=== PATIENT | female | born 1985 | race Two or more races ===

== ENCOUNTER 2021-10-01 15:29 | Outpatient (REF) | payer MEDICAID, OTHER, SELFPAY ==
--- NOTE | ~2021-10-01 | US_ITS ---
EXAMINATION: US PELVIS CLINICAL INFORMATION: Irregular menstruation. Age 36. LMP 08/21/2021. COMPARISON: None TECHNIQUE: Ultrasound of the pelvis is performed using both transabdominal and transvaginal transducers along with Doppler. Transvaginal imaging is performed due to inadequate visualization transabdominally. FINDINGS: Uterus: The uterus is retroverted and measures 7.6 x 4.3 x 5.2 cm. The double wall endometrial thickness is normal at 11 mm. The uterus is smooth in contour and has normal myometrial echogenicity. No visible fibroid. Adnexa: Both ovaries are visualized. There is normal color flow to the adnexa. There is no ovarian torsion. There is no pelvic ascites or fluid collection. Right ovary measures 3.9 x 1.9 x 2.0 cm. No adnexal mass. Left ovary measures 3.4 x 1.6 x 1.4 cm. There is an incidental fine rim specular echo around a 0.4 cm follicle of doubtful significance. No posterior shadowing. No adnexal mass. US/US pelvic and transvaginal IMPRESSION: -Uterus: No visible fibroid. Endometrial double wall thickness normal at 11 mm. -Ovaries: No adnexal mass or pelvic ascites.
== END 2021-10-01 15:30 | disposition home or self-care (01) ==
LOC: HO.HMGCX 15:29
PROVIDERS: Visit Provider Advanced Practice Midwife
DX: N92.6 Irregular menstruation, unspecified (principal)
CPT/HCPCS: 76830; 76856

== ENCOUNTER → 2022-03-17 13:40 | Outpatient (REF) | payer MEDICAID, OTHER, SELFPAY ==
--- NOTE | 2022-03-17 13:46 | ECG_ITS ---
Hook-up date: 2022-03-17 13:04:00 Duration: 47:51:00 Test Indications: palpitations Medications: [id number] QRS complexes * Ventricular ectopics which represent % of total QRS comp. 2 Supraventricular ectopics which represent <1 % of total QRS comp. * Paced QRS complexs which represent % of total QRS comp. VENTRICULAR ECTOPY * Isolated * Bigeminal Cycles * Couplets * Runs * Beats in Runs * Beats LONGEST at * BPM at :: -- * Beats FASTEST at * BPM at :: -- SUPRAVENTRICULAR ECTOPY 2 Isolated 0 Couplets 0 Runs 0 Beats in Runs * Beats LONGEST at * BPM at :: -- * Beats FASTEST at * BPM at :: -- HEART RATES 49 MIN at 01:32:30 2022-03-18 77 AVG 122 MAX at 15:10:05 2022-03-17 LONGEST RR 1.5440 secs at 01:32:24 2022-03-18 S-T LEVELS Channel 1 - 128 mm at 13:04:00 2022-03-17 - 128 mm at 13:04:00 2022-03-17 Channel 2 - 128 mm at 13:04:00 2022-03-17 - 128 mm at 13:04:00 2022-03-17 Channel 3 - 128 mm at 03:22:31 -- - 128 mm at 03:22:31 Underlying rhythm is sinus; Average ventricular rate 77/min; range 49-122/min; No significant ectopy, tachy or bradyarrhythmias; Dizziness, accelerated heart rate, tiredness, associated with sinus rhythm on holter. Referred By: Marco Nance Overread By: MIGDALIA HANNA
== END ==
LOC: HO.CARD 13:40
PROVIDERS: PCP Internal Medicine; Visit Provider Internal Medicine
DX: R00.2 Palpitations (principal); F41.9 Anxiety disorder, unspecified
CPT/HCPCS: 93225; 93226

== ENCOUNTER 2022-10-01 16:34 | Outpatient (REF) | payer MEDICAID, OTHER, SELFPAY ==
--- NOTE | ~2022-10-01 | XR_ITS ---
EXAMINATION: XR WRIST, RIGHT CLINICAL INFORMATION: Pain and swelling right wrist COMPARISON: None available. TECHNIQUE: PA, lateral, and oblique views of the right wrist. FINDINGS: The bones and soft tissues are normal. No fracture. Alignment is anatomic with normal joint spaces. No erosions or abnormal soft tissue calcifications. XR/XR wrist RT min 3V IMPRESSION: Unremarkable right wrist exam.
== END 2022-10-01 16:35 | disposition home or self-care (01) ==
LOC: HO.XRAY 16:34
PROVIDERS: PCP Emergency Medicine; Visit Provider Emergency Medicine
DX: M25.531 Pain in right wrist (principal); M25.431 Effusion, right wrist
CPT/HCPCS: 73110

== ENCOUNTER 2023-05-04 15:43 | Outpatient (REF) | payer MEDICAID, OTHER, SELFPAY ==
[2023-05-04 17:33] LABS: MANUAL DIFF FLAG NO
[2023-05-04 17:41] LABS: Basophils Percent Auto 0.6 % (0-2); Eosinophils Absolute Auto 0.2 X10*3/uL (0.0-0.4); Eosinophils Percent Auto 2.5 % (0-4); Hematocrit 39.1 % (37.0-47.0); Imm Gran Abs Auto 0.02 X10*3/uL (0.00-0.03); Imm Gran Pct Auto 0.3 % (0.0-0.4); Lymphocytes Absolute Auto 1.8 X10*3/uL (1.2-4.9); Lymphocytes Percent Auto 25.7 % (20-40); Mean Corpuscular HGB Conc 33.2 g/dl (31.0-35.0); Mean Corpuscular Hemoglobin 29.8 pg (27.0-33.0); Mean Corpuscular Volume 89.7 fL (80.0-98.0); Monocytes Absolute Auto 0.5 X10*3/uL (0.1-1.2); Monocytes Percent Auto 7.5 % (2-11); Neutrophils Absolute Auto 4.5 x10*3/uL (2.0-8.3); Neutrophils Percent Auto 63.4 % (45-73); Platelet Count 302 X10*3/uL (160-400); Red Blood Count 4.36 X10*6/uL (4.20-5.50); Red Cell Distribution Width 12.4 % (11.0-16.0); White Blood Count 7.1 X10*3/uL (4.8-10.8)
[2023-05-04 18:28] LABS: Anion Gap 12 (12-20); Blood Urea Nitrogen 17 mg/dL (9-16); Carbon Dioxide 28 mmol/L (22-29); Chloride 102 mmol/L (96-108); Estimated Glomerular Filt Rate 45; Glucose Random 69 mg/dL (60-115); Sodium 138 mmol/L (135-145)
== END 2023-05-04 15:44 | disposition home or self-care (01) ==
LOC: HO.CHCLDS 15:43
PROVIDERS: Visit Provider Internal Medicine
DX: Z00.00 Encounter for general adult medical examination without abnormal findings (principal); K52.9 Noninfective gastroenteritis and colitis, unspecified
CPT/HCPCS: 36415; 80048; 85025

== ENCOUNTER 2023-05-07 11:56 | Outpatient (REF) | payer MEDICAID, OTHER, SELFPAY | END 2023-05-07 11:57 | disposition home or self-care (01) | LOC: HO.CHCLNP 11:56 | PROVIDERS: Visit Provider Internal Medicine | DX: Z11.2 Encounter for screening for other bacterial diseases (principal); K52.9 Noninfective gastroenteritis and colitis, unspecified | CPT/HCPCS: 87338 ==

== ENCOUNTER 2023-06-18 11:12 | Outpatient (REF) | payer MEDICAID, OTHER, SELFPAY ==
[2023-06-18 14:26] LABS: Appearance Urine Clear; Color Urine Yellow; Glucose Urine UA Negative (Negative); Leukocyte Esterase Urine Negative (Negative); Nitrite Urine Negative (Negative); Specific Gravity - Urine <= 1.005 (1.005-1.025); UMIC TRIGGER UACC YES; Urine Blood Moderate (2+) (Negative); Urine Ketones Negative (Negative); Urine Protein Negative (Neg-Trace)
[2023-06-18 14:40] LABS: Bacteria Urine None Seen (None Seen); Hyaline Casts Urine 0-2 /LPF (0-2); RBC Urine 0-2 /HPF (0-2); Squamous Epithelial Cell Urine 0-2 /HPF (0-2); WBC Urine 0-5 /HPF (0-5)
== END 2023-06-18 11:13 | disposition home or self-care (01) ==
LOC: CF 11:12
PROVIDERS: Visit Provider Internal Medicine
DX: N30.01 Acute cystitis with hematuria (principal)
CPT/HCPCS: 81001

== ENCOUNTER 2024-02-03 08:41 | Outpatient (REF) | payer MEDICAID, OTHER, SELFPAY ==
[2024-02-03 14:27] LABS: MANUAL DIFF FLAG NO
[2024-02-03 14:33] LABS: Basophils Absolute Auto 0.1 X10*3/uL (0.0-0.2); Basophils Percent Auto 0.9 % (0-2); Eosinophils Absolute Auto 0.1 X10*3/uL (0.0-0.4); Eosinophils Percent Auto 1.9 % (0-4); Hematocrit 37.9 % (37.0-47.0); Hemoglobin 12.5 g/dl (12.0-16.0); Imm Gran Abs Auto 0.01 X10*3/uL (0.00-0.03); Imm Gran Pct Auto 0.2 % (0.0-0.4); Lymphocytes Absolute Auto 1.8 X10*3/uL (1.2-4.9); Lymphocytes Percent Auto 33.3 % (20-40); Mean Corpuscular Hemoglobin 30.1 pg (27.0-33.0); Mean Corpuscular Volume 91.3 fL (80.0-98.0); Mean Platelet Volume 10.6 fL (9.4-12.3); Monocytes Absolute Auto 0.4 X10*3/uL (0.1-1.2); Monocytes Percent Auto 8.3 % (2-11); Neutrophils Absolute Auto 2.9 x10*3/uL (2.0-8.3); Neutrophils Percent Auto 55.4 % (45-73); Platelet Count 262 X10*3/uL (160-400); Red Blood Count 4.15 X10*6/uL (4.20-5.50); Red Cell Distribution Width 12.7 % (11.0-16.0); White Blood Count 5.3 X10*3/uL (4.8-10.8)
[2024-02-03 14:46] LABS: Anion Gap 10 (12-20); Blood Urea Nitrogen 12 mg/dL (9-16); Calcium 9.2 mg/dL (8.4-10.2); Carbon Dioxide 28 mmol/L (22-29); Chloride 103 mmol/L (96-108); Estimated Glomerular Filt Rate 59; Glucose Random 73 mg/dL (60-115); Potassium 3.7 mmol/L (3.3-5.1); Sodium 137 mmol/L (135-145)
== END 2024-02-03 08:42 | disposition home or self-care (01) ==
LOC: HO.CHCLDS 08:41
PROVIDERS: Visit Provider Internal Medicine
DX: R10.9 Unspecified abdominal pain (principal); R14.0 Abdominal distension (gaseous)
CPT/HCPCS: 36415; 80048; 85025

== ENCOUNTER 2024-10-04 16:09 | Outpatient (REF) | payer MEDICAID, OTHER, SELFPAY ==
--- OUTSIDE RECORDS SUMMARY | 2024-10-04 18:55 | XMS_ITS | Clinical Summary ---
Author Organization [facility] Address [address] [place] [address] Care Team Providers Care Still Tender Name Role Phone Marco Nance Primary Care Provider + [phone] Allergies No known active allergies Medications diclofenac (VOLTAREN) 1% gel Apply to affected area twice a day as needed for pain 09/29/2022 Active Active Problems Problem Noted Date Diagnosed Date Right wrist tendinitis 02/05/2023 Social History Tobacco Use Types Packs/Day Years Used Date Smoking Tobacco: Never Smokeless Tobacco: Never Tobacco Cessation:Counseling Given: Not Answered Comments Unknown Sex and Gender Information Value Date Recorded Sex Assigned at Not on file Legal Sex Female 3:13 PM EDT Gender Identity Not on file Sexual Orientation Not on file Plan of Treatment Health Maintenance Due Date Last Done Comments Cervical Cancer Screening 1984 HIV Screening 1984 HPV and Pap Smear 1984 Hepatitis C Screening 1984 Pap Smear 1984 Varicella Vaccines (1 of 2 - 13+ 2-dose series) 01/05/1997 Hepatitis B Vaccines (1 of 3 - 19+ 3-dose series) 01/05/2003 DTaP,Tdap,and Td Vaccines (1 - Tdap) 01/05/2006 Mammogram 2024 COVID-19 Vaccine (4 - 2023-2 5 season) 2024 07/06/2021, 12/21/2020, 11/30/2020 Alcohol/Substance Use Screening 06/22/2024 Depression Screening and Follow-Up 06/22/2024 Social Drivers of Health Annual Screening 06/22/2024 Influenza Vaccine (Season Ended) 2025 RSV Vaccine (60+ years old and patients) (1 - 1-dose 75+ series) 01/05/2059 Pneumococcal Vaccine: Pediatric (0-5 Years) and At-Risk Patients (6-50 Years) Aged Out No longer eligible based on patient's age to complete this topic Insurance [facility] [place] [id number] HSNO/FREE CARE Care Teams Still Tender Relationship Specialty Start Date End Date Marco Nance [address] [place] [id number] PCP - General Internal Medicine 10/29/22
--- OUTSIDE RECORDS SUMMARY | 2024-10-04 18:55 | XMS_ITS | Encounter Summary ---
Author Organization [employer] Address [address] [place] [address] [address] [place] [address] Care Team Providers Care Manager Agency Name Role Phone Marco Nance MD Primary Care Provider Encounter Details Date Type Department Care Team ([facility] st Contact Info) Description 05/09/2023 Orders Only [facility] [address] [place], [place] [id number] Marco Nance MD [address] [place] [address] H. pylori infection (Primary Dx) Social History Tobacco Use Types Packs/Day Years Used Date Smoking Tobacco: Never Passive Smoke Exposure: Never Smokeless Tobacco: Never Housing Stability Answer Date Recorded What is your housing situation today? I have elvira hyman 04/24/[address] you li ve. Do you have problems with any of the following? None of the above 04/24/2023 Food Insecurity Answer Date Recorded Within the past 12 months, y ou worried that your food would run out before you got money to buy more: Never True 04/24/2023 Within the past 12 months,th e food you bought just didn't last and you didn't have enough money to get more: Never True 08/2022 Transportation Answer Date Recorded In the past 12 months, has l ack of transportation kept you from medical appts, meetings, work or from getting things needed for daily living? No 04/24/2023 Utilities Answer Date Recorded In the past 12 months, has t he electric, gas, oil or water company threatened to shut off services in your home? No 04/24/2023 Comments Unknown Sex and Gender Information Value Date Recorded Sex Assigned at Female 04/21/2022 10:38 AM EDT Legal Sex Female 10:38 AM EDT Gender Identity Female 04/21/2022 10:38 AM EDT Sexual Orientation Straight 04/21/2022 10 :38 AM EDT documented as of this encounter Plan of Treatment Not on file documented as of this encounter Visit Diagnoses Diagnosis H. pylori infection- Primary Helicobacter pylori (H. pylori) documented in this encounter Care Teams Manager Agency Relationship Specialty Start Date End Date Marco Nance MD [address] [place] [id number] PCP - General Internal Medicine 07/22/21 documented as of this encounter
--- OUTSIDE RECORDS SUMMARY | 2024-10-04 18:55 | XMS_ITS | Clinical Summary ---
Author Organization [employer] Address [address] [place] [address] [address] [address] Care Team Providers Care Hand Surgeon Name Role Phone Marco Nance MD Primary Care Provider [phone] Allergies No known active allergies Medications famotidine (Pepcid) 20 MG tabletIndications:Ac grayson gastroenteritis Take 1 tablet (20 mg) by mouth if needed in the morning and at bedtime for heartburn. 60 tablet 1 3 Active Omeprazole 20 MG tablet delayed-releaseIndic ations:H. pylori infection TAKE 1 TABLET BY MOUTH ITM 90 tablet 3 3 Active hydrocortisone (Anusol-HC) 2.5 % rectal cream Apply twice a day for next week. 28 g 3 Active sertraline (Zoloft) 100 MG tabletIndications:An xiety disorder, unspecified TAKE ONE TABLET EVERY MORNING 30 tablet 5 5 Active simethicone (Gas-X Extra Strength) 125 MG capsuleIndications:B loating symptom Take 1 capsule (125 mg) by mouth every 6 (six) hours if needed for flatulence. 28 capsule 5 Active Active Problems Problem Noted Date Diagnosed Date Anxiety 03/21/2021 Encounters Date Type Department Care Team Description 08/18/2024 9:45 AM EST Office Visit [facility] [address] [place], [place] [phone] Marco Nance MD Anxiety (Primary Dx); Bloating symptom 08/18/2024 Travel 08/15/2024 Telephone [facility] [address] [place], [place] [phone] Marco Nance MD CHART PREP 08/04/2024 Patient Outreach [facility] [address] [place] [address] Marco Nance MD Pre-visit Planning (Pre visit planning LVM ) 07/12/2024 Refill [facility] [address] [place] [address] Marco Nance MD Anxiety disorder, unspecified from Last 3 Months Immunizations Name Administration Dates Next Due Influenza injectable quadrivalent preservative f ree 05/04/2023,09/03/2021 Family History Medical History Relation Name Comments Breast cancer Father's Sister Heart disease Mother Hypertension Mother Uterine cancer Mother's Sister Relation Name Status Comments Father's Sister Mother Mother's Sister Social History Tobacco Use Types Packs/Day Years Used Date Smoking Tobacco: Never Passive Smoke Exposure: Never Smokeless Tobacco: Never Tobacco Cessation:Counseling Given: Not Answered Alcohol Use Standard Drinks/Week Comments Never 0 (1 standard drink = 0.6 oz pur e alcohol) Alcohol Answer Date Recorded Q1: How often do you have a drink containing alc ohol? 1 05/06/2024 Q2: How many drinks containi ng alcohol do you have on a typical day when you are drinking? 0 05/06/2024 Q3: How often do you have six or more drinks on one occasion? 1 05/06/2024 Depression Answer Date Recorded Patient Health Questionnaire-9 Score 2 05/06/2024 Patient Health Questionnaire-9 Score 2 05/06/2024 Last PHQ-9: Questionnaire Data Not on file 1 07/06/2023 Housing Stability Answer Date Recorded What is [...] off services in your home? No 04/24/2023 Depression Answer Date Recorded Patient Health Questionnaire-2 Score 0 05/06/2024 Comments No Sex and Gender Information Value Date Recorded Sex Assigned at Female 04/21/2022 10:38 AM EDT Legal Sex Female 10:38 AM EDT Gender Identity Female 04/21/2022 10:38 AM EDT Sexual Orientation Straight 04/21/2022 10 :38 AM EDT Last Filed Vital Signs Vital Sign Reading Time Taken Comments Blood Pressure 100/60 08/18/2024 9:39 AM EST Pulse 64 08/18/2024 9:39 AM EST Temperature 36.6 ??C (97.8 ??F) 08/18/2024 9:39 AM ES T Respiratory Rate 20 08/18/2024 9:39 AM EST Oxygen Saturation 98% 08/18/2024 9:39 AM EST Inhaled Oxygen Concentration - - Weight 66.2 kg (146 lb) 08/18/2024 9:39 AM EST Height 169 cm (5' 6.54 ) 08/18/2024 9:39 AM EST Body Mass Index 23.19 08/18/2024 9:39 AM EST Plan of Treatment Health Maintenance Due Date Last Done Comments Family Planning (PISQ) 01/05/1999 Hepatitis B Vaccines (1 of 3 - 19+ 3-dose series) 01/05/2003 Dental Oral Exam 11/22/2023 05/22/2023 Dental Prophylaxis 12/05/2023 06/04/2023 Mammogram 2024 COVID-19 Vaccine ( - 2023-2 5 season) 2024 SDOH Screening 04/24/2024 04/24/2023 Dental X-Ray: Bitewings 05/23/2024 05/22/2023 Pap Smear 09/03/2024 09/03/2021 Influenza Vaccine (#1) 2024 3, 09/03/2021 Postponed from 02/21/2024 (Patient Refused) DTaP/Tdap/Td Vaccines (1 - Tdap) 05/06/2025 Postponed from 01/05 (Patient Refused) Depression Screening 05/06/2025 05/06/2024, 05/06/2024 Alcohol/Substance Use Screening 08/18/2025 08/18/2024 Tobacco Screening 08/18/2025 08/18/2024 Dental X-Ray: Full Mouth 05/23/2026 05/22/2023 Cervical Cancer Screening 09/03/2026 HPV/Cotest 09/03/2026 09/03/2021 Zoster Vaccines (1 of 2) 01/05/2034 RSV Patients and Patients Aged 60 years or older (1 - 1-dose 75+ series) 01/05/2059 HIV Screening Completed 05/09/2022 Hepatitis C Screening Completed 05/09/2022 , 07/02/2021 HIB Vaccines Aged Out No longer eligi ble based on patient's age to complete this topic HPV Vaccines Aged Out No longer eligi ble based on patient's age to complete this topic Hepatitis A Vaccines Aged Out No long er eligible based on patient's age to complete this topic IPV Vaccines Aged Out No longer eligi ble based on patient's age to complete this topic Meningococcal Vaccine Aged Out No violetta santos eligible based on patient's age to complete this topic Pneumococcal Vaccine: Pediatrics (0 to 5 Years) and At-Risk Patients (6 to 49) Years) Aged Out No longer eligible b ased on patient's age to complete this topic RSV under 20 months Aged Out No longe r eligible based on patient's age to complete this topic Rotavirus Vaccines Aged Out No longer eligible based on patient's age to complete this topic Procedures Procedure Name Priority Date/Time Associated Diagnosis Comments PROPHYLAXIS - ADULT Routine 06/04/2023 2 :00 PM EST INTRAORAL - COMPLETE SERIES OF RADIOGRAPHIC IMAGES Routine 05/22/2023 2:00 PM EST COMPREHENSIVE ORAL EVALUATION - NEW OR ESTABLISHED PATIENT Routine 05/22/2023 2:00 PM EST ZZZ HISTORICAL HEPATITIS C AB W/REFL TO HCV RNA, QN, PCR Routine 05/09/2022 10:10 AM EST HIV 1/2 ANTIGEN/ANTIBODY, FOURTH GENERATION W/RFL Routine 05/09/2022 10:10 AM EST THINPREP IMAGING PAP AND HPV MRNA E6/E7 WITH REFLEX TO HPV 16,18/45 Routine 09/03/2021 3:07 PM EDT from Last 3 Months or Most Recently Relevant to Health Maintenance Results * HEPATITIS C AB W/REFL TO HCV RNA, QN, PCR (05/09/2022 10:10 AM EST) HEPATITIS C ANTIBODY NON-REACTI VE NON-REACT ZAIRE CONVERTED LEGACY LABS INDEX 0.10 <1.00 CONVERTED LEGACY LABS Comment: ?? HCV antibody was non-reactive. There is no laboratory ?? evidence of HCV infection. ?? In most cases, no further action is required. However, if recent HCV exposure is suspected, a test for HCV RNA (test code 50680) is suggested. ?? For additional information please refer to http://ARTtwo50.[employer]/faq/NDV06h4 (This link is being provided for informational/ educational purposes only.) ?? 05/09/2022 10:1 0 AM EST Moon Baig BEEKEEPER FARMER HISTORICAL/NON ORDERABLE LABS Final Result CONVERTED LEGACY LABS * HIV 1/2 ANTIGEN/ANTIBODY,FOURTH GENERATION W/RFL (05/09/2022 10:10 AM EST) HIV-1/2 ANTIGEN AND ANTIBODIES, 4TH GENERATION W/ REFLEX NON-REACT ZAIRE NON-REACT ZAIRE CONVERTED LEGACY LABS Comment: HIV-1 antigen and HIV-1/HIV-2 antibodies were not detected. There is no laboratory evidence of HIV infection. ?? PLEASE NOTE: This information has been disclosed to you from records whose confidentiality may be protected by state law. ??If your state requires such protection, then the state law prohibits you from making any further disclosure of the information without the specific written consent of the person to whom it pertains, or as otherwise permitted by law. A general authorization for the release of medical or other information is NOT sufficient for this purpose. ? For additional information please refer to http://education.[employer]/faq/XCO205 (This link is being provided for informational/ educational purposes only.) ? The performance of this assay has not been clinically validated in patients less than 2 years old. ?? 05/09/2022 10:1 0 AM EST us Moon Baig [employer]EEKEE[employer] LAB BLOOD ORDERABLES Final Res ult CONVERTED LEGACY LABS * THINPREP TIS PAP AND HPV mRNA E6/E7 WITH REFLEX TO HPV 16,18/45 (09/03/2021 3:07 PM EDT) Clinical Information: None given [email or web address] COMMENT SEE COMMENT [facility] Comment: EXPLANATORY NOTE: ? The Pap is a screening test for cervical cancer. It is ?? not a diagnostic test and is subject to false negative ?? and false positive results. It is most reliable when a ?? satisfactory sample, regularly obtained, is submitted ?? with relevant clinical findings and history, and when ?? the Pap result is evaluated along with historic and ?? current clinical information. ?? COMMENT: This Pap test has been evaluated with computer assisted technology. [employer] [facility] Cafeteria Helper: SEE COMMENT [facility] Comment: CMG, CT(ASCP) CT screening location: [address] ??[id number] HPV nRNA E6/E7 Not Detected Not Detected [employer] [facility] Comment: Methodology: Demand Generation Manager-Mediated Amplification This assay detects E6/E7 viral messenger RNA (mRNA) from 14 high-risk HPV types (16,18,31,33,35,39,45,51,52,56,58,59,66,68). ? The analytical performance characteristics of this assay have been determined by [employer]. The modifications have not been cleared or approved by the FDA. This assay has been validated pursuant to the CLIA regulations and is used for clinical purposes. ?? For additional information, please refer to http://education.[employer]/faq/QST332y4 (This link if provided for information/ educational purposes only.) Interpretation/Re sult: Negative for intraepithelial lesion or malignancy. [email or web address] LMP: NONE [facility]IVEN [facility] Prev. BX: NONE GIVEN [facility] Prev. PAP: NONE GIVEN [facility] SYSTEM SOURCE: None given [facility] Statement Of Adequacy: SEE COMMENT [facility] Comment: Satisfactory for evaluation. Endocervical/transformation zone component present. Age and/or menstrual status not provided 09/03/2021 3:07 PM EDT Mercedes Garland CNM LAB PATHOLOGY ORDERABLES Final Result [facility] [address] from Last 3 Months or Most Recently Relevant to Health Maintenance Insurance LIMITED HSN FULL DENTAL-[facility] MEDICAID LIMITED ADULT DENTAL - HSN FULL (MEDICAID) DENTAL - HSN PARTIAL (MEDICAID) Care Teams Hand Surgeon Relationship Specialty Start Date End Date Marco Nance MD [address] [place] [id number] PCP - General Internal Medicine 07/22/21
--- OUTSIDE RECORDS SUMMARY | 2024-10-04 18:55 | XMS_ITS | Referral Summary ---
Author Organization [facility] Address [address] [place] [address] Care Team Providers Care Livestock Commission Agent Name Role Phone WilmergurmeetMarco urena Primary Care Provider + [phone] Allergies No known active allergies Medications diclofenac [...] Orientation Not on file Plan of Treatment Not on file Insurance [facility] HS/FREE CARE Care Teams Livestock Commission Agent Relationship Specialty Start Date End Date Marco Nance [address] [place] [address] PCP - General Internal Medicine 10/29/22
== END 2024-10-04 16:10 | disposition home or self-care (01) ==
LOC: HO.MAMMO 16:09
PROVIDERS: PCP Internal Medicine; Visit Provider Internal Medicine
DX: Z12.31 Encounter for screening mammogram for malignant neoplasm of breast (principal)
CPT/HCPCS: 77063; 77067

== ENCOUNTER → 2024-10-04 16:15 | Outpatient (BNV) | payer SELFPAY | PROVIDERS: PCP Internal Medicine; Visit Provider Internal Medicine | DX: Z12.31 Encounter for screening mammogram for malignant neoplasm of breast (principal) | CPT/HCPCS: 77063; 77067 ==

== ENCOUNTER 2025-02-22 13:06 | Outpatient (REF) | payer SELFPAY ==
--- OUTSIDE RECORDS SUMMARY | 2025-02-22 09:00 | XMS_ITS | Encounter Summary ---
Author Organization [employer] Address [address] [place] [address] Care Team Providers Care Wet Plant Operator Name Role Phone Marco Nance MD Primary Care Provider [phone] Reason for Referral * Imaging (Routine) - Authorized Specialty Diagnoses / Procedures Referred By Contac t Referred To Contact Radiology Diagnoses Pelvic pain Procedures US Pelvis Transvaginal Bailey Robles MD [address] [place] [id number] Phone: tel: fax: [address] Phone: tel: fax: Referral ID Status Reason Start Date Expiration Date V isits Requested Visits Authorized [id number] Authorized 02/22/2025 02/22/2026 1 1 * Imaging (Routine) - Authorized Specialty Diagnoses / Procedures Referred By Contac t Referred To Contact Radiology Diagnoses Pelvic pain Procedures Us Pelvis complete Bailey Robles MD [address] [place] [address] Phone: tel: fax: [address] Phone: tel: fax: Referral ID Status Reason Start Date Expiration Date V isits Requested Visits Authorized [id number] Authorized 02/22/2025 02/22/2026 1 1 Reason for Visit * Reason Comments Pelvic Pain Encounter Details Date Type Department Care Team (Late st Contact Info) Description 02/22/2025 9:00 AM EDT Office Visit [facility] [address] [place] [address] Bailey Robles MD [address] [place] [address] Pelvic pain (Primary Dx) Social History Tobacco Use Types Packs/Day Years Used Date Smoking Tobacco: Never Passive Smoke Exposure: Never Smokeless Tobacco: Never Alcohol Use Standard Drinks/Week Comments Never 0 [...] AM EDT documented as of this encounter Last Filed Vital Signs Vital Sign Reading Time Taken Comments Blood Pressure 112/69 02/22/2025 9:16 AM EDT Pulse 74 02/22/2025 9:16 AM EDT Temperature 36.2 C (97.2 F) 02/22/2025 9:16 AM EDT Respiratory Rate 20 02/22/2025 9:16 AM EDT Oxygen Saturation 98% 02/22/2025 9:16 AM EDT Inhaled Oxygen Concentration - - Weight 67.4 kg (148 lb 9.6 oz) 02/22/2025 9:16 A M EDT Height 167 cm (5' 5.75 ) 02/22/2025 9:16 AM EDT Body Mass Index 24.17 02/22/2025 9:16 AM EDT documented in this encounter Plan of Treatment Scheduled Orders Name Type Priority Associated Diagnoses Orde r Schedule TSH W/Reflex to FT4 Lab Routine Pelvic pain Expected: 02/22/2025 (Approximate), Expires: 02/22/2026 Us Pelvis complete Imaging Routine Pelvic pain Expected: 02/22/2025, Expires: 02/22/2026 US Pelvis Transvaginal Imaging Routine Pelvic pain Expected: 02/22/2025, Expires: 02/22/2026 Bacterial Vaginosis Microbiology Routine Pelvic pain Ordered: 02/22/2025 Chlamydia/N. Gonorrhoeae RNA, TMA, Urogenitial Microbiology Routine Pelvic pain Ordered: 02/22/2025 CBC auto differential Lab Routine Pelvic pain Expected: 02/22/2025 (Approximate), Expires: 02/22/2026 hCG, Total, Quantitative Lab Routine Pelvic pain Expected: 02/22/2025 (Approximate), Expires: 02/22/2026 documented as of this encounter Visit Diagnoses Diagnosis Pelvic pain- Primary documented in this encounter Additional Health Concerns Assessment Noted Time PHQ-9 Depression Total Score: 2 05/06/20 24 2:34 PM EST documented as of this encounter Care Teams Wet Plant Operator Relationship Specialty Start Date End Date Marco Nance MD [address] [place] [phone] PCP - General Internal Medicine 07/22/21 documented as of this encounter
--- OUTSIDE RECORDS SUMMARY | 2025-02-22 15:27 | XMS_ITS | Clinical Summary ---
Author Organization [employer] Address [address] [place] [address] [address] [place] [address] Care Team Providers Care Credit Risk Review Officer Name Role Phone Marco Nance MD Primary Care Provider Allergies No known active allergies Medications famotidine (Pepcid) 20 MG tabletIndications:[place] gastroenteritis Take 1 tablet (20 mg) by [...] needed for flatulence. 28 capsule 5 Active folic acid (Folvite) 400 MCG tablet Take 1 tablet by mouth at bed time. 1 Active Active Problems Problem Noted Date Diagnosed Date Right wrist tendinitis 02/05/2023 Anxiety 03/21/2021 COVID-19 08/29/2020 Encounters Date Type Department Care Team Description 02/22/2025 9:00 AM EDT Office Visit [facility] [address] [place] [address] Bailey Robles MD Pelvic pain (Primary Dx) 02/22/2025 Travel 02/21/2025 Telephone [facility] [address] [place] [address] Marco Nance MD Nurse Triage 01/03/2025 Telephone [facility] [address] [place] [address] Marco Nance MD recall appt from Last 3 Months Immunizations Immunization Administration Dates Next Due Influenza injectable quadrivalent [...] Mass Index 24.17 02/22/2025 9:16 AM EDT Plan of Treatment Health Maintenance Due Date Last Done Comments Disability Screening 1985 Family Planning (PISQ) 01/05/1999 HPV Vaccines (1 - 3-dose series) 01/05/1999 Hepatitis B Vaccines (1 of 3 - 19+ 3-dose series) 01/05/2003 Dental Oral Exam 11/22/2023 05/22/2023 Dental Prophylaxis 12/05/2023 06/04/2023 SDOH Screening 04/24/2024 04/24/2023 Dental X-Ray: Bitewings 05/23/2024 05/22/2023 COVID-19 Vaccine (1 - 2023-2 5 season) 2025 Influenza Vaccine (#1) 2025 , 09/03/2021 DTaP/Tdap/Td Vaccines (1 - Tdap) 05/06/2025 Postponed from 01/05 (Patient Refused) Depression Screening 05/06/2025 05/06/2024, 05/06/2024 Alcohol/Substance Use Screening 08/18/2025 08/18/2024 Tobacco Screening 02/22/2026 02/22/2025 Dental X-Ray: Full Mouth 05/23/2026 05/22/2023 Cervical Cancer Screening 09/03/2026 HPV/Cotest 09/03/2026 09/03/2021 Pap Smear 09/03/2026 09/03/2021 Mammogram 10/04/2026 10/04/2024 Zoster Vaccines (1 of 2) 01/05/2034 RSV [...] patient's age to complete this topic Meningococcal B Vaccine Aged Out No l onger eligible based on patient's age to complete this topic Meningococcal Vaccine Aged Out No violetta santos eligible based on patient's age to complete this topic Pneumococcal Vaccine: Pediatrics (0 to 5 Years) and At-Risk Patients (6 to 49) Years Aged Out No longer eligible b ased on patient's age to complete this topic RSV under 20 months Aged Out No longe r eligible based on patient's age to complete this topic Rotavirus Vaccines Aged Out No longer eligible based on patient's age to complete this topic Procedures Procedure Name Priority Date/Time Associated Diagnosis Comments BI MAMMOGRAM SCREENING TOMOSYNTHESIS BILATERAL Routine 10/04/2024 4:13 PM EDT Screening mammogram for breast cancer PROPHYLAXIS - ADULT Routine 06/04/2023 2 :00 [...] Recently Relevant to Health Maintenance Results * BI Mammogram Screening Tomosynthesis Bilateral (10/04/2024 4:13 PM EDT) Anatomical Region Laterality Modality Breast Bilateral Mammography 10/04/2024 4:13 PM EDT Narrative 10/15/2024 11:24 AM EDT [facility] [address] [place] [address] Mammography Report Signed Patient: Kelle Howard MR#: [id number] : 1985 Acct:[id number] Age/Sex: 39 / F ADM Date: 10/04/24 Loc: HO.MAMMO Attending Dr: Marco Nance MD Ordering Physician: Marco Nance MD Results: 1 Negative Date of Service: 10/04/24 Follow Up: 1 Year From [facility] Mammogram Procedure(s): MM tomosynthesis screening BI Accession Number(s): [id number] cc: Marco Nance MD EXAMINATION: MM SCREENING DIGITAL BREAST TOMOSYNTHESIS, BILATERAL CLINICAL INFORMATION: Screening. Asymptomatic. COMPARISON: Mammography: Baseline. TECHNIQUE: Digital breast mammography with tomosynthesis is performed in both the craniocaudal and mediolateral oblique views along with computer-aided detection (CAD). FINDINGS: The breasts are heterogeneously dense, which may obscure small masses (ACR BI-RADS breast composition Category c). There are no significant masses, abnormal calcifications, or other abnormalities. MM/MM tomosynthesis screening BI IMPRESSION: No mammographic evidence of malignancy. ASSESSMENT: BI-RADS BI-RADS 1 - Negative RECOMMENDATION: Routine annual mammography screening. 1 year F/U This examination should not preclude the clinical evaluation of a suspicious palpable abnormality. This patient's information was entered into a reminder system with a target due date for their next mammogram. Electronically signed by: Lynne Herbert DO 10/15/2024 11:21 AM EDT Dictated By: Lynne Herbert DO Signed By: <Electronically signed by Lynne Herbert DO in OV> 10/15/24 1121 DD/ 1613 TD/TT: 10/04/24 1628 Process Improvement Consultant: Procedure Note Donotuseinterpreter, Image - 10/15/2024 [facility] [address] [place], [place] [address] Mammography Report Signed Patient: Kelle Howard MR#: [id number] : 1985Acct:[id number] Age/Sex: 39 / FADM Date: 10/04/24 Loc: HO.MAMMO Attending Dr: Marco Nance MD Ordering Physician: Marco Nance MDResults: 1 Negative Date of Service: 10/04/24Follow Up: 1 Year From Orig inal Mammogram Procedure(s): MM tomosynthesis screening BI Accession Number(s): [id number] cc: Marco Nance MD EXAMINATION: MM SCREENING DIGITAL BREAST TOMOSYNTHESIS, BILATERAL CLINICAL INFORMATION: Screening. Asymptomatic. COMPARISON: Mammography: Baseline. TECHNIQUE: Digital breast mammography with tomosynthesis is performed in both the craniocaudal and mediolateral oblique views along with computer-aided detection (CAD). FINDINGS: The breasts are heterogeneously dense, which may obscure small masses (ACR BI-RADS breast composition Category c). There are no significant masses, abnormal calcifications, or other abnormalities. MM/MM tomosynthesis screening BI IMPRESSION: No mammographic evidence of malignancy. ASSESSMENT: BI-RADS BI-RADS 1 - Negative RECOMMENDATION: Routine annual mammography screening. 1 year F/U This examination should not preclude the clinical evaluation of a suspicious palpable abnormality. This patient's information was entered into a reminder system with a target due date for their next mammogram. Electronically signed by: Lynne Herbert DO 10/15/2024 11:21 AM EDT Dictated By: Lynne Herbert DO Signed By: <Electronically signed by Lynne Herbert DO in OV> 10/15/24 1121 DD/ 1613 TD/TT: 10/04/24 1628 Process Improvement Consultant: us Marco Nance MD IMG BI PROCEDURES Edited Re sult - Final * HEPATITIS C AB W/REFL TO HCV RNA, QN, PCR (05/09/2022 10:10 AM EST) HEPATITIS C ANTIBODY NON-REACTI VE NON-REACT ZAIRE CONVERTED LEGACY LABS INDEX 0.10 <1.00 CONVERTED LEGACY LABS Comment: HCV antibody was non-reactive. There is no laboratory evidence of HCV infection. In most cases, no further action is required. However, if recent HCV exposure is suspected, a test for HCV RNA (test code 21307) is suggested. For additional information please refer to http://education.[employer]faq/XTL90x5 (This link is being provided for informational/ educational purposes only.) 05/09/2022 10:1 0 AM EST Moon JARA HISTORICAL/NON ORDERABLE LABS Final Result CONVERTED LEGACY LABS * HIV 1/2 ANTIGEN/ANTIBODY,FOURTH GENERATION W/RFL (05/09/2022 10:10 AM EST) HIV-1/2 ANTIGEN AND ANTIBODIES, 4TH GENERATION W/ REFLEX NON-REACT ZAIRE NON-REACT ZAIRE CONVERTED LEGACY LABS Comment: HIV-1 antigen and HIV-1/HIV-2 antibodies were not detected. There is no laboratory evidence of HIV infection. PLEASE NOTE: This information has been disclosed to you from records whose confidentiality may be protected by state law. If your state requires such protection, then the state law prohibits you from making any further disclosure of the information without the specific written consent of the person to whom it pertains, or as otherwise permitted by law. A general authorization for the release of medical or other information is NOT sufficient for this purpose. For additional information please refer to http://education.[employer]/faq/UHV009 (This link is being provided for informational/ educational purposes only.) The performance of this assay has not been clinically validated in patients less than 2 years old. 05/09/2022 10:1 0 AM EST us Moon Baig SUPERVISOR ALUMINUM FABRICATION LAB BLOOD ORDERABLES Final Res ult CONVERTED LEGACY LABS * THINPREP TIS PAP AND HPV mRNA E6/E7 WITH REFLEX TO HPV 16,18/45 (09/03/2021 3:07 PM EDT) Clinical Information: None given [facility] COMMENT SEE COMMENT [facility] Comment: EXPLANATORY NOTE: The Pap is a screening test for cervical cancer. It is not a diagnostic test and is subject to false negative and false positive results. It is most reliable when a satisfactory sample, regularly obtained, is submitted with relevant clinical findings and history, and when the Pap result is evaluated along with historic and current clinical information. COMMENT: This Pap test has been evaluated with computer assisted technology. [facility] Window Shade Cutter And Mounter: SEE COMMENT [facility] Comment: CMG, CT(ASCP) CT screening location: [place] [address] HPV nRNA E6/E7 Not Detected Not Detected [facility] Comment: Methodology: Manager Local-Mediated Amplification This assay detects E6/E7 viral messenger RNA (mRNA) from 14 high-risk HPV types (16,18,31,33,35,39,45,51,52,56,58,59,66,68). The analytical performance characteristics of this assay have been determined by [employer]. The modifications have not been cleared or approved by the FDA. This assay has been validated pursuant to the CLIA regulations and is used for clinical purposes. For additional information, please refer to http://education.[employer]/faq/JVG011h6 (This link if provided for information/ educational purposes only.) Interpretation/Re sult: Negative for intraepithelial lesion or malignancy. [facility] LMP: NONE GIVEN [facility] Prev. BX: NONE GIVEN [facility] Prev. PAP: NONE GIVEN [facility] SOURCE: None given [facility] Statement Of Adequacy: SEE COMMENT [facility] Comment: Satisfactory for evaluation. Endocervical/transformation zone component present. Age and/or menstrual status not provided 09/03/2021 3:07 PM EDT us Mercedes Garland CNM LAB PATHOLOGY ORDERABLES Final Result [facility] [address] from Last 3 Months or Most Recently Relevant to Health Maintenance Insurance [employer] N [facility] LIMITED ADULT DENTAL - HSN FULL (MEDICAID) DENTAL - HSN PARTIAL (MEDICAID) Care Teams Credit Risk Review Officer Relationship Specialty Start Date End Date Marco Nance MD [address] [place], [place] [phone] PCP - General Internal Medicine 07/22/21
--- OUTSIDE RECORDS SUMMARY | 2025-02-22 15:27 | XMS_ITS | Encounter Summary ---
Author Organization [employer] Address [address] [place] [address] 7 [place] [address] Care Team Providers Care Human Resources Assistant Name Role Phone Marco Nacne MD Primary Care Provider Encounter Details Date Type Department Care Team ([facility] st Contact Info) Description 05/09/2023 Orders Only [facility] [address] [place], [place] [phone] Marco Nance MD [address] [place] [address] H. pylori infection (Primary Dx) Social History [...] pylori) documented in this encounter Care Teams Human Resources Assistant Relationship Specialty Start Date End Date Marco Nance MD [address] [place] [id number] PCP - General Internal Medicine 07/22/21 documented as of this encounter
--- OUTSIDE RECORDS SUMMARY | 2025-02-22 15:27 | XMS_ITS | Encounter Summary ---
Author Organization [employer] Address [address] [place] [address] Care Team Providers Care Ice Cutter Name Role Phone Marco Nance MD Primary Care Provider Reason for Visit * Reason Onset Date Comments Nurse Triage 02/21/2025 Encounter Details Date Type Department Care Team ([facility] st Contact Info) Description 02/21/2025 Telephone [facility] [address] [place], [place] [phone] Marco Nance MD [address] [place] [address] Nurse Triage Social History Tobacco Use Types Packs/Day Years [...] the past 12 months, has t he [employer], gas, oil or water company threatened to [...] AM EDT documented as of this encounter Miscellaneous Notes * Telephone Encounter - Richa Galindo RN - 02/21/2025 10:55 AM EDT Call to Kelle Howard for triage below with BIG multi disciplined language analyst line with Pashto measuring clerk ID # [id number]. Reports has normal menses of approx 5 days. Per pt had heavier than normal bleeding and lasted approx 10 days. Not currently having any bleeding . LMP was on 02/09/25. Pain is pelvic area. Has persisted since menses. Continues to feel like cramping. No urinary pain or burning. Has foul odor discharge. Pt advised of disposition, no appts in [place] agrees to sick onsite tomorrow with team provider. Protocol Used: Pelvic Pain - Female (Adult) Protocol-Based Disposition: See in Office or Video Visit Today Future Appointments Date Time Provider Department Center 02/22/2025 9:00 AM Bailey Robles MD [facility] Insurance verified as active per Real Time Eligibility in [facility]. Positive Triage Question: * Unusual vaginal discharge (e.g., bad smelling, yellow, green, or foamy-white) * All higher-acuity triage questions were negative Care Advice Discussed: * Reassurance and Education - Mild to Moderate Pain Lasting Less Than 2 Hours * Rest * Reasons To Call Back - Severe pain lasts over 1 hour - Constant pain lasts over 2 hours - You become worse * Telephone Encounter - Dillon Banda - 02/21/2025 9:52 AM EDT Tc from pt reporting that she was on her menstrual cycle for 10 days straight and would have abdominal pain. Pt is no longer on menstrual cycle but still has abdominal pain. Contact [phone] (Pashto) documented in this encounter Plan of Treatment Not on file documented as of this encounter Visit Diagnoses Not on filedocumented in this encounter Additional Health Concerns Assessment Noted Time PHQ-9 Depression Total Score: 2 05/06/20 24 2:34 PM EST documented as of this encounter Care Teams Ice Cutter Relationship Specialty Start Date End Date Marco Nance MD [address] [place] [id number] PCP - General Internal Medicine 07/22/21 documented as of this encounter
--- OUTSIDE RECORDS SUMMARY | 2025-02-22 15:27 | XMS_ITS | Clinical Summary ---
Author Organization [facility] Address [address] [place] [address] Care Team Providers Care Corrective Therapy Aide Name Role Phone Marco Nance Primary Care Provider + [phone] Allergies No known active allergies Medications diclofenac [...] Vaccines (1 - Tdap) 01/05/2006 Mammogram 2024 Alcohol/Substance Use Screening 06/22/2024 Depression Screening and Follow-Up 06/22/2024 Social Drivers of Health Annual Screening 06/22/2024 COVID-19 Vaccine (4 - 2024-2 6 season) 2025 07/06/2021, 12/21/2020, 11/30/2020 Influenza Vaccine (#1) 2025 RSV Vaccine (60+ years old and patients) (1 - 1-dose 75+ series) 01/05/2059 Pneumococcal Vaccine: Pediatric (0-5 Years) and At-Risk Patients (6-50 Years) Aged Out No longer eligible based on patient's age to complete this topic Insurance [facility] [address] HSNO/FREE CARE Care Teams Corrective Therapy Aide Relationship Specialty Start Date End Date Marco Nance [address] [place] [id number] PCP - General Internal Medicine 10/29/22
--- OUTSIDE RECORDS SUMMARY | 2025-02-22 15:27 | XMS_ITS | Encounter Summary ---
Author Organization [employer] Address [address] [facility] 7 [place] [address] Care Team Providers Care Operations Controller Name Role Phone Marco Nance MD Primary Care Provider [phone] Encounter Details Date Type Department Care Team (Latest Contact Info) Description 02/22/2025 Travel Social History Tobacco Use Types Packs/Day Years [...] documented as of this encounter Care Teams Operations Controller Relationship Specialty Start Date End Date Marco Nance MD [address] [place] [phone] PCP - General Internal Medicine 07/22/21 documented as of this encounter
[2025-02-22 16:39] LABS: Bacterial Vaginosis PCR NEGATIVE (Negative); Candida Group PCR NOT DETECTED (Not Detect); Candida glab krusei PCR NOT DETECTED (Not Detect); Trichomonas vaginalis PCR NOT DETECTED (Not Detect)
[2025-02-22 17:01] LABS: CT PCR NOT DETECTED (Not Detect.); NG PCR NOT DETECTED (Not Detect.)
== END 2025-02-22 13:07 | disposition home or self-care (01) ==
LOC: HO.CHCLNP 13:06
PROVIDERS: Visit Provider Family Medicine
DX: R10.2 Pelvic and perineal pain (principal)
CPT/HCPCS: 81515; 87491; 87591

== ENCOUNTER 2025-03-06 14:32 | Outpatient (REF) | payer MEDICAID, OTHER, SELFPAY ==
--- OUTSIDE RECORDS SUMMARY | 2025-03-06 13:40 | XMS_ITS | Encounter Summary ---
Author Organization [employer] Address [address] [facility] 7t [place] [address] Care Team Providers Care Boiler Operator Name Role Phone Marco Nance MD Primary Care Provider [phone]- [phone] Reason for Visit * Reason Comments Abdominal Pain Encounter Details Date Type Department Care Team (Late st Contact Info) Description 03/06/2025 1:40 PM EDT Office Visit [facility] [address] [place] [address] [phone] Stormy Ruth ANP [address] [place] [address] Lower abdominal pain (Primary Dx); Irregular menses; Vaginal discharge Social History Tobacco Use Types Packs/Day Years [...] the past 12 months, has t he [place], gas, oil or water company threatened to [...] Sign Reading Time Taken Comments Blood Pressure 113/73 03/06/2025 1:56 PM EDT Pulse 71 03/06/2025 1:56 PM EDT Temperature 36.7 C (98 F) 03/06/2025 1:56 PM EDT Respiratory Rate 18 03/06/2025 1:56 PM EDT Oxygen Saturation 100% 03/06/2025 1:56 PM EDT Inhaled Oxygen Concentration - - Weight 65.2 kg (143 lb 12.8 oz) 03/06/2025 1:56 PM EDT Height - - Body Mass Index 23.39 02/22/2025 9:16 AM EDT documented in this encounter Patient Instructions * Patient Instructions* DOMENIC Sheldon - 03/06/2025 1:40 PM EDT documented in this encounter Progress Notes * DOMENIC Sheldon - 03/06/2025 1:40 PM EDT Subjective Patient ID: Kelle Howard is a 40 y.o. female who presents for abdominal pain. HPI Here today for lower abd pain. Also seen at [facility] for pelvic pain 02/22/25 Per triage Reports has normal menses of approx 5 days. Per pt had heavier than normal bleeding andlasted approx 10 days. Not currently having any bleeding . LMP was on 02/09/25. Pain is pelvic area.Has persisted since menses. Continues to feel like cramping. No urinary pain or burning. Has foul odor discharge. Omeprazole on med list as well as simethicone, only fill hx is for sertraline Recent testing negative as below (trich, NG/CT, BV, yeast) [place] interpreters utilized for [place] interpretation via phone, # [phone] Here today for eval of abd pain, reports same as above, lower pelvic. Started w/ abd pain 2d ago cramping and vaginal discharge that is malodorous and a little pink Had a long menstrual cycle in January, LMP 02/09/25 No dysuria, no fever/chills, nausea, vomiting No dyspareunia Has US scheduled for next Thursday as ordered by Dr. Robles [facility] Vasectomy 10 years ago Non-smoker Patient Active Problem List Diagnosis Anxiety Right wrist tendinitis Review of Systems Constitutional: Negative for chills and fever. HENT: Negative for sore throat. Respiratory: Negative for cough and shortness of breath. Cardiovascular: Negative for chest pain. Gastrointestinal: Negative for constipation and diarrhea. Endocrine: Negative for polydipsia, polyphagia and polyuria. Genitourinary: Negative for dysuria. Objective BP 113/73 (BP Location: Right arm, Patient Position: Sitting, BP Cuff Size: Adult) Pulse 71 Temp 98 ??F (36.7 ??C) (Oral) Resp 18 Wt 143 lb 12.8 oz (65.2 kg) SpO2 100% BMI 23.39kg/m?? Physical Exam Vitals reviewed. Constitutional: General: She is not in acute distress. Appearance: Normal appearance. She is not ill-appearing. HENT: Head: Normocephalic and atraumatic. Eyes: General: No scleral icterus. Extraocular Movements: Extraocular movements intact. Pupils: Pupils are equal, round, and reactive to light. Cardiovascular: Rate and Rhythm: Normal rate. Pulmonary: Effort: Pulmonary effort is normal. No accessory muscle usage or respiratory distress. Skin: General: Skin is warm and dry. Coloration: Skin is not pale. Neurological: Mental Status: She is alert and oriented to person, place, and time. Cranial Nerves: No cranial nerve deficit. Gait: Gait normal. Psychiatric: Mood and Affect: Mood normal. Behavior: Behavior normal. Assessment/Plan Diagnoses and all orders for this visit: Lower abdominal pain Pt appears well, with mild lower pelvic pain similar w/ cramping and malodorous pinkish vaginal discharge x2d. UA w trace blo. No urinary sx. Check BV panel today. Recent other testing wnl, no new partners. Had irregular menses last mo. US scheduled for next week. Advised to take OTC ibuprofen as needed for pain, get labs as ordered, call clinic for any worsening sx. - POCT urinalysis dipstick manually resulted - POCT , urine manually resulted Office Visit on 03/06/2025 Component Date Value Ref Range Status Color, UA 03/06/2025 Yellow Final Clarity, UA 03/06/2025 Clear Final Glucose, UA 03/06/2025 Negative Final Bilirubin, UA 03/06/2025 Negative Final Ketones, UA 03/06/2025 Negative Final Spec Grav, UA 03/06/2025 1.005 Final Blood, UA 03/06/2025 Positive (A) Negative, None Detected Final Trace- intact pH, UA 03/06/2025 5.5 Final Protein, UA 03/06/2025 Negative Final Urobilinogen, UA 03/06/2025 0.2 Final Leukocytes, UA 03/06/2025 Negative Negative, Rare, Trace Final Nitrite, UA 03/06/2025 Negative Negative, None Detected Final Preg Test, Ur 03/06/2025 Negative Negative, Indeterminate, None Detected, Invalid, Specimen unsatisfactory for evaluation, Weakly Positive, 2+ Final Irregular menses Pt will get labs as ordered by Dr. Robles Vaginal discharge - Bacterial Vaginosis Panel BV/trich/NG/CT/yeast negative 02/22/25 No visits with results within 1 Day(s) from this visit. Latest known visit with results is: Office Visit on 02/22/2025 Component Date Value Ref Range Status TRICHOMONAS VAGINALIS DETECTION BY* 02/22/2025 NOT DETECTED Not Detect Final BACTERIAL VAGINOSIS DETECTION BY P* 02/22/2025 NEGATIVE Negative Final The BV organism targets of the Xpert Xpress MVP test can becommensal in women; Xpert Xpress MVP positive results forbacterial vaginosis should be considered in conjunction withother clinical and patient information to determine thedisease status. Organisms that are not detected by the XpertXpress MVP test have also been reported to be associatedwith BV and aerobic vaginitis.The Xpert Xpress MVP test performance has not been evaluatedin patients under the age of 14. JEANETTE GROUP DETECTION BY PCR 02/22/2025 NOT DETECTED Not Detect Final Jeanette glab krusei PCR 02/22/2025 NOT DETECTED Not Detect Final CT PCR 02/22/2025 NOT DETECTED Not Detect. Final A not detected test result does not exclude the possibilityof infection because test results can beaffected byimproper specimen collection, concurrent antibiotic therapy,or the number of organisms in the specimen which may bebelow the sensitivity of the test. As with many diagnostictests, results from the Xpert CT/NG assay should beinterpreted in conjunction with other laboratory andclinical data available to the clinician.Xpert CT/NG performance has not been evaluated in patientsless than 14 years of age. The assay should not be used forthe evaluationof suspected sexual abuse or for other medico-legalindications. Additional testing is recommended in anycircumstance when false positive or f alse negative resultscould lead to adverse medical, social or psychologicalconsequences. NG PCR 02/22/2025 NOT DETECTED Not Detect. Final A not detected test result does not exclude the possibilityof infection because test results can beaffected byimproper specimen collection, concurrent antibiotic therapy,or the number of organisms in the specimen which may bebelow the sensitivity of the test. As with many diagnostictests, results from the Xpert CT/NG assay should beinterpreted in conjunction with other laboratory andclinical data available to the clinician.Xpert CT/NG performance has not been evaluated in patientsless than 14 years of age. The assay should not be used forthe evaluationof suspected sexual abuse or for other medico-legalindications. Additional testing is recommended in anycircumstance when false positive or f alse negative resultscould lead to adverse medical, social or psychologicalconsequences. documented in this encounter Plan of Treatment Scheduled Orders Name Type Priority Associated Diagnoses Orde r Schedule Bacterial Vaginosis Panel Microbiology Routine Vaginal discharge Ordered: 03/06/2025 documented as of this encounter Procedures Procedure Name Priority Date/Time Associated Diagnosis Comments POCT , URINE Routine 03/06/2025 2:14 PM EDT Lower abdominal pain POCT URINALYSIS DIPSTICK Routine 03/06/2025 2:14 PM EDT Lower abdominal pain documented in this encounter Results * POCT , urine manually resulted (03/06/2025 2:14 PM EDT) Preg Test, Ur Negative Negative, Indeterminate, None Detected, Invalid, Specimen unsatisfactory for evaluation, Weakly Positive, 2+ Urine 03/06/2025 2:14 PM EDT us Stormy SHETH POINT OF CARE TEST ENTER/EDIT OR DERABLES Final Result * (ABNORMAL) POCT urinalysis dipstick manually resulted (03/06/2025 2:14 PM EDT) Color, UA Yellow Clarity, UA Clear Glucose, UA Negative Bilirubin, UA Negative Ketones, UA Negative Spec Grav, UA 1.005 Blood, UA Positive(A) Negative, None Detected Comment:Trace- intact pH, UA 5.5 Protein, UA Negative Urobilinogen, UA 0.2 Leukocytes, UA Negative Negative, Rare, Trace Nitrite, UA Negative Negative, None Detected Urine 03/06/2025 2:14 PM EDT us Stormy SHETH POINT OF CARE TEST ENTER/EDIT OR DERABLES Final Result documented in this encounter Visit Diagnoses Diagnosis Lower abdominal pain- Primary Abdominal pain, other specified site Irregular menses Irregular menstrual cycle Vaginal discharge Leukorrhea, not specified as infective documented in this encounter Additional Health Concerns Assessment Noted Time PHQ-9 Depression Total Score: 2 05/06/20 24 2:34 PM EST documented as of this encounter Care Teams Boiler Operator Relationship Specialty Start Date End Date Marco Nance MD [address] [place] [phone] PCP - General Internal Medicine 07/22/21 documented as of this encounter
[2025-03-06 16:19] LABS: MANUAL DIFF FLAG NO
[2025-03-06 16:27] LABS: Hematocrit 39.5 % (37.0-47.0); Hemoglobin 13.3 g/dl (12.0-16.0); Imm Gran Abs Auto 0.03 X10*3/uL (0.00-0.03); Imm Gran Pct Auto 0.4 % (0.0-0.4); Lymphocytes Absolute Auto 2.2 X10*3/uL (1.2-4.9); Mean Corpuscular HGB Conc 33.7 g/dl (31.0-35.0); Mean Corpuscular Hemoglobin 30.4 pg (27.0-33.0); Mean Corpuscular Volume 90.2 fL (80.0-98.0); NRBC Abs Auto 0.000 X10*3/uL (0.0-0.012); NRBC Pct Auto 0.0 /100WBC (0.0-0.2); Platelet Count 291 X10*3/uL (160-400); Red Blood Count 4.38 X10*6/uL (4.20-5.50); White Blood Count 8.5 X10*3/uL (4.8-10.8)
--- OUTSIDE RECORDS SUMMARY | 2025-03-06 19:59 | XMS_ITS | Encounter Summary ---
Author Organization [employer] Address [address] [facility] 7 [place] [address] Care Team Providers Care Casting Carrier Name Role Phone Marco Nance MD Primary Care Provider [phone]- [phone] Encounter Details Date Type Department Care Team (Latest Contact Info) Description 03/06/2025 Travel Social History Tobacco Use Types Packs/Day [...] documented as of this encounter Care Teams Casting Carrier Relationship Specialty Start Date End Date Marco Nance MD [address] [place] [phone] PCP - General Internal Medicine 07/22/21 documented as of this encounter
--- OUTSIDE RECORDS SUMMARY | 2025-03-06 19:59 | XMS_ITS | Clinical Summary ---
Author Organization [employer] Address [address] [facility] 7 [place] [address] Care Team Providers Care Oral Surgery Physician Name Role Phone Marco Nance MD Primary Care Provider Allergies No known active allergies Medications famotidine (Pepcid) 20 MG tabletIndications:Ac assiniboine and sioux gastroenteritis Take 1 tablet (20 mg) by [...] Date Right wrist tendinitis 02/05/2023 Anxiety 03/21/2021 Resolved Problems Problem Noted Date Diagnosed Date Resolved Date COVID-19 08/29/2020 03/06/2025 Encounters Date Type Department Care Team Description 03/06/2025 1:40 PM EDT Office Visit [facility] [address] [address] Stormy Ruth ANP Lower abdominal pain (Primary Dx); Irregular menses; Vaginal discharge 03/06/2025 Travel 02/22/2025 9:00 AM EDT Office Visit [facility] [address] [place] [address] Bailey Robles MD Pelvic pain (Primary Dx) 02/22/2025 Travel 02/21/2025 Telephone [facility] [address] [place] [address] Marco Nance MD Nurse Triage 01/03/2025 Telephone [facility] [address] [place] [address] Marco Nance MD recall appt from Last [...] 12.8 oz) 03/06/2025 1:56 PM EDT Height 167 cm (5' 5.75 ) 02/22/2025 9:16 AM EDT Body Mass Index 23.39 02/22/2025 9:16 AM EDT Plan of Treatment [...] Alcohol/Substance Use Screening 08/18/2025 08/18/2024 Tobacco Screening 03/06/2026 03/06/2025 Dental X-Ray: Full Mouth 05/23/2026 05/22/2023 Cervical [...] this topic Meningococcal Vaccine Aged Out No vioeltta santos eligible based on patient's age to [...] Procedure Name Priority Date/Time Associated Diagnosis Comments HCG, TOTAL, QN Routine 03/06/2025 2:52 PM EDT Pelvic pain CBC WITH AUTO DIFFERENTIAL Routine 03/06/2025 2:52 PM EDT Pelvic pain TSH W/REFLEX TO FT4 Routine 03/06/2025 2 :52 PM EDT Pelvic pain POCT , URINE Routine 03/06/2025 2:14 PM EDT Lower abdominal pain POCT URINALYSIS DIPSTICK Routine 03/06/2025 2:14 PM EDT Lower abdominal pain CHLAMYDIA/N. GONORRHOEAE RNA, TMA, UROGENITAL Routine 02/22/2025 9:36 AM EDT Pelvic pain BACTERIAL VAGINOSIS PANEL Routine 02/22/2025 9:36 AM EDT Pelvic pain BI MAMMOGRAM SCREENING TOMOSYNTHESIS BILATERAL Routine 10/04/2024 [...] Recently Relevant to Health Maintenance Results * TSH W/Reflex to FT4 (03/06/2025 2:52 PM EDT) TSH reflex Free T4 1.44 0.32 - 4.0 uIU/mL [facility] Blood Venous blood specimen / Unknown 03/06/2025 2:52 PM EDT 03/06/2025 4:08 PM EDT us Bailey Robles MD LAB BLOOD ORDERABLES Final Re sult [facility] [address] [place] [phone] [phone] * CBC auto differential (03/06/2025 2:52 PM EDT) White Blood Count 8.5 4.8 - 10.8 X10*3/uL [facility] Red Blood Count 4.38 4.20 - 5.50 X10*6/uL [facility] Hemoglobin 13.3 12.0 - 16.0 g/dl [facility] Hematocrit 39.5 37.0 - 47.0 % [facility] Mean Corpuscular Volume 90.2 80.0 - 98.0 fL [facility] Mean Corpuscular Hemoglobin 30.4 27.0 - 33.0 pg [facility] Mean Corpuscular HGB Conc 33.7 31.0 - 35.0 g/dl [facility] Red Cell Distribution Width 12.5 11.0 - 16.0 % [facility] Platelet Count 291 160 - 400 X10*3/uL [facility] Mean Platelet Volume 10.2 9.4 - 12.3 fL [facility] Neutrophils Percent Auto 65.5 45 - 73 % [facility] Imm Gran Pct Auto 0.4 0.0 - 0.4 % [facility] Lymphocytes Percent Auto 25.4 20 - 40 % [facility] Monocytes Percent Auto 6.9 2 - 11 % [facility] Eosinophils Percent Auto 1.3 0 - 4 % [facility] Basophils Percent Auto 0.5 0 - 2 % [facility] NRBC Pct Auto 0.0 0.0 - 0.2 /100WBC [facility] Neutrophils Absolute Auto 5.6 2.0 - 8.3 x10*3/uL [facility] Imm Gran Abs Auto 0.03 0.00 - 0.03 X10*3/uL [facility] Lymphocytes Absolute Auto 2.2 1.2 - 4.9 X10*3/uL [facility] Monocytes Absolute Auto 0.6 0.1 - 1.2 X10*3/uL [facility] Eosinophils Absolute Auto 0.1 0.0 - 0.4 X10*3/uL [facility] Basophils Absolute Auto 0.0 0.0 - 0.2 X10*3/uL [facility] NRBC Abs Auto 0.000 0.0 - 0.012 X10*3/uL [facility] Blood Venous blood specimen / Unknown 03/06/2025 2:52 PM EDT 03/06/2025 4:08 PM EDT us Bailey Robles MD LAB BLOOD ORDERABLES Final Re sult [facility] [address] [place] [phone] * hCG, Total, Quantitative (03/06/2025 2:52 PM EDT) HCG Quantitative <2 mIU/mL [facility] Comment:Weeks post LMP Appro ximate hCG(Last Menstrual Period) Range (mIU/ml)3 - 4 weeks 9 - 1304 - 5 weeks 75 - 2,6005 - 6 weeks 850 - 20,8006 - 7 weeks 4000 - 100,2007 - 12 weeks 11,500 - 289,02117 - 16 weeks 18,300 - 137,93036 - 29 weeks (2nd trimester) 1,400 - 53,61135 - 41 weeks (3rd trimester) 940 - 60,000The Mckeon B-hCG assay is used for the early detection ofpregnancy; it cannot be used to diagnose any conditionunrelated to . If a B-hCG level is not supportedby the clinical evidence, results should be confirmed by analternative method (qualitative urine hCG, for example). Blood Venous blood specimen / Unknown 03/06/2025 2:52 PM EDT 03/06/2025 4:08 PM EDT Bailey Robles MD LAB BLOOD ORDERABLES Final Re sult [facility] [address] [place] [phone] * POCT , urine manually resulted (03/06/2025 2:14 PM EDT) Preg Test, Ur Negative Negative, Indeterminate, None Detected, Invalid, Specimen unsatisfactory for evaluation, Weakly Positive, 2+ Urine 03/06/2025 2:14 PM EDT Stormy SHETH POINT OF CARE TEST ENTER/EDIT [...] TEST ENTER/EDIT OR DERABLES Final Result * Bacterial Vaginosis (02/22/2025 9:36 AM EDT) TRICHOMONAS VAGINALIS DETECTION BY PCR NOT DETECTED Not Detect [facility] BACTERIAL VAGINOSIS DETECTION BY PCR NEGATIVE Negative [facility] Comment:The BV organism targ ets of the Xpert Xpress MVP test can [...] of 14. JEANETTE GROUP DETECTION BY PCR NOT DETECTED Not Detect [facility] Jeanette glab krusei PCR NOT DETECTED Not Detect [facility] Swab Vaginal structure / Unknown 02/22/2025 9:36 AM EDT 02/22/2025 1:53 PM EDT us Bailey Robles MD LAB MICROBIOLOGY - GENERAL OR DERABLES Final Result [facility] [address] [place] [phone] * Chlamydia/N. Gonorrhoeae RNA, TMA, Urogenitial (02/22/2025 9:36 AM EDT) CT PCR NOT DETECTED Not Detect. [facility] Comment:A not detected test result does not exclude the possibilityof infection because test results can be affected byimproper specimen collection, concurrent antibiotic therapy,or the [...] recommended in anycircumstance when false positive or false negative resultscould lead to adverse medical, social or psychologicalconsequences. NG PCR NOT DETECTED Not Detect. [facility] Comment:A not detected test result does not exclude the possibilityof infection because test results can be affected byimproper specimen collection, concurrent antibiotic therapy,or the [...] recommended in anycircumstance when false positive or false negative resultscould lead to adverse medical, social or psychologicalconsequences. Swab (Vaginal Swab) 02/22/2025 9:36 AM EDT 02/22/2025 1:53 PM EDT us Bailey Robles MD LAB MICROBIOLOGY - GENERAL OR DERABLES Final Result [facility] [address] [place] [phone] * BI Mammogram Screening Tomosynthesis Bilateral (10/04/2024 4:13 PM EDT) Anatomical Region Laterality Modality Breast Bilateral Mammography 10/04/2024 4:13 PM EDT Narrative 10/15/2024 11:24 AM EDT [facility] [address] [place] [address] Mammography Report Signed Patient: Kelle Howard MR#: [id number] : 1985 Acct:[id number] Age/Sex: 39 / F ADM Date: 10/04/24 Loc: HO.MAMMO Attending Dr: Marco Nance MD Ordering Physician: Marco Nance MD Results: 1 Negative Date of Service: 10/04/24 Follow Up: 1 Year From [facility] Mammogram Procedure(s): MM tomosynthesis screening BI Accession Number(s): [id number] cc: Marco Nance MD EXAMINATION: MM SCREENING [...] 10/15/24 1121 DD/ 1613 TD/TT: 10/04/24 1628 Lining Cementer: Procedure Note Donotuseinterpreter, Image - 10/15/2024 [facility] [address] [place] [address] Mammography Report Signed Patient: Kelle Howard MR#: [id number] : 1985Acct:[id number] Age/Sex: 39 / FADM Date: 10/04/24 Loc: HO.MAMMO Attending Dr: Marco Nance MD Ordering Physician: Marco Nance MDResults: 1 Negative Date of Service: 10/04/24Follow Up: 1 Year From [facility] Mammogram Procedure(s): MM tomosynthesis screening BI Accession Number(s): [id number] cc: Marco Nance MD EXAMINATION: MM SCREENING [...] 10/15/24 1121 DD/ 1613 TD/TT: 10/04/24 1628 Lining Cementer: us Marco Nance MD IMG BI PROCEDURES [...] a test for HCV RNA (test code 25350) is suggested. For additional information please refer to http://education.LuckyCal.View and Chew/faq/SRA20v4 (This link is being provided for informational/ educational purposes only.) 05/09/2022 10:1 0 AM EST us Moon [facility] HISTORICAL/NON ORDERABLE LABS Final Result CONVERTED LEGACY [...] purpose. For additional information please refer to http://education.CISSOID/faq/VDI690 (This link is being provided for informational/ educational purposes only.) The performance of this assay has not been clinically validated in patients less than 2 years old. 05/09/2022 10:1 0 AM EST Moon Baig [facility] LAB BLOOD ORDERABLES Final Res ult CONVERTED LEGACY LABS * THINPREP TIS PAP AND HPV mRNA E6/E7 WITH REFLEX TO HPV 16,18/45 (09/03/2021 3:07 PM EDT) Clinical Information: None given [facility] COMMENT SEE COMMENT [facility] ON [...] has been evaluated with computer assisted technology. [facility] Skip Load Driver: SEE COMMENT [facility] Comment: CMG, CT(ASCP) CT screening location: [place] [address] HPV nRNA E6/E7 Not Detected Not Detected [facility] Comment: Methodology: Radiocommunications Technician-Mediated Amplification This assay detects E6/E7 viral messenger RNA (mRNA) from 14 high-risk HPV types (16,18,31,33,35,39,45,51,52,56,58,59,66,68). The analytical performance characteristics of this assay have been determined by [employer]. The modifications have not been cleared or approved by the FDA. This assay has been validated pursuant to the CLIA regulations and is used for clinical purposes. For additional information, please refer to http://education.CISSOID/faq/FON050w7 (This link if provided for information/ educational purposes only.) Interpretation/Re sult: Negative for intraepithelial lesion or malignancy. [facility] LMP: NONE GIVEN [facility] Prev. BX: NONE GIVEN [facility] Prev. PAP: NONE GIVEN [facility] SOURCE: None given [facility] Statement Of Adequacy: SEE COMMENT [facility] Comment: Satisfactory for evaluation. Endocervical/transformation zone component present. Age and/or menstrual status not provided 09/03/2021 3:07 PM EDT us Mercedes Garland CNM LAB PATHOLOGY ORDERABLES Final Result Performing Organization Address City/State/[facility] Co de Phone Number [facility] [address] from Last 3 Months or Most Recently Relevant to Health Maintenance Insurance [facility]AL[facility] MEDICAID LIMITED ADULT DENTAL - HSN FULL (MEDICAID) DENTAL - HSN PARTIAL (MEDICAID) Care Teams Oral Surgery Physician Relationship Specialty Start Date End Date Marco Nance MD [address] [place] [phone] PCP - General Internal Medicine 07/22/21
--- OUTSIDE RECORDS SUMMARY | 2025-03-06 19:59 | XMS_ITS | Encounter Summary ---
Author Organization [employer] Address [address] [place] [address] 7 [place] [address] Care Team Providers Care Kiln Tester Name Role Phone Marco Nance MD Primary Care Provider Encounter Details Date Type Department Care Team ([facility] st Contact Info) Description 05/09/2023 Orders Only [facility] [address] [place], [place] [phone] Marco Nance MD [address] [place] [address] H. pylori infection (Primary Dx) Social History [...] pylori) documented in this encounter Care Teams Kiln Tester Relationship Specialty Start Date End Date Marco Nance MD [address] [place] [phone] PCP - General Internal Medicine 07/22/21 documented as of this encounter
--- OUTSIDE RECORDS SUMMARY | 2025-03-06 20:00 | XMS_ITS | Clinical Summary ---
Author Organization [facility] Address [address] [place] [address] Care Team Providers Care Digital Media Producer Name Role Phone Marco Nance Primary Care Provider [phone] Allergies No known active allergies Medications diclofenac [...] patient's age to complete this topic Insurance [facility] [place] [address] HSNO/FREE CARE Care Teams Digital Media Producer Relationship Specialty Start Date End Date Marco aNnce [address] [place] [phone] PCP - General Internal Medicine 10/29/22
[2025-03-06 23:16] LABS: Bacterial Vaginosis PCR POSITIVE (Negative); Candida Group PCR DETECTED (Not Detect); Candida glab krusei PCR NOT DETECTED (Not Detect); Trichomonas vaginalis PCR NOT DETECTED (Not Detect)
== END 2025-03-06 14:33 | disposition home or self-care (01) ==
LOC: HO.HHCL 14:32
PROVIDERS: Family Medicine; PCP Internal Medicine; Visit Provider Nurse Practitioner Primary Care
DX: R10.2 Pelvic and perineal pain (principal); N89.8 Other specified noninflammatory disorders of vagina
CPT/HCPCS: 36415; 81515; 84443; 84702; 85025

== ENCOUNTER 2025-05-26 14:08 | Outpatient (REF) | payer MEDICAID, OTHER, SELFPAY ==
--- NOTE | ~2025-05-26 | US_ITS ---
EXAMINATION: US PELVIS CLINICAL INFORMATION: Abnormal uterine bleeding, pelvic pain COMPARISON: None available. TECHNIQUE: Ultrasound of the pelvis is performed using both transabdominal and transvaginal transducers along with Doppler. Transvaginal imaging is performed due to inadequate visualization transabdominally. FINDINGS: Uterus: The uterus is anteverted and measures 7.7 x 4.5 x 4.5 cm. The double wall endometrial thickness is 10 mm. The uterus is smooth in contour and has normal myometrial echogenicity. No visible fibroid. Adnexa: Both ovaries are visualized. There is normal color flow to the adnexa. There is no ovarian torsion. There is no pelvic ascites or fluid collection. Right ovary measures 2.6 x 1.7 x 1.9 cm. Left ovary measures 3.2 x 1.4 x 1.3 cm. 4 mm echogenic focus with posterior acoustic shadowing is consistent with focal calcification. US/US pelvic and transvaginal IMPRESSION: Unremarkable pelvic ultrasound. Electronically signed by: Nathan Lopez MD 05/26/2025 03:37 PM [facility]ES
--- OUTSIDE RECORDS SUMMARY | 2025-05-26 18:21 | XMS_ITS | Encounter Summary ---
Author Organization [employer] Address [address] [place] [address] 7 [place] [address] Care Team Providers Care Wrapper Hand Name Role Phone Marco Nance MD Primary Care Provider Encounter Details Date Type Department Care Team ([facility] st Contact Info) Description 05/09/2023 Orders Only [facility] PEDS [address], [place] [phone] Marco Nance MD [address] [place] [address] H. pylori infection (Primary Dx) Social History [...] as of this encounter Plan of Treatment Upcoming Encounters Date Type Department Care Team ([facility] st Contact Info) Description 06/08/2025 4:00 PM EST Office Visit [facility] MED & PEDS [address] [place] [address] Marco Nance MD [address] [place] [address] documented as of this encounter Visit Diagnoses Diagnosis H. pylori infection- Primary Helicobacter pylori (H. pylori) documented in this encounter Care Teams Wrapper Hand Relationship Specialty Start Date End Date Marco Nance MD [address] [place] [address] PCP - General Internal Medicine 07/22/21 documented as of this encounter
--- OUTSIDE RECORDS SUMMARY | 2025-05-26 18:21 | XMS_ITS | Clinical Summary ---
Author Organization [employer] Address [address] [place] [address] [address] [place] [address] Care Team Providers Care Family Service Worker Name Role Phone Marco Nance MD Primary Care Provider Allergies No known active allergies Medications famotidine (Pepcid) 20 MG tabletIndications:Ac nondalton gastroenteritis Take 1 tablet (20 mg) by [...] Encounters Date Type Department Care Team Description 03/16/2025 Telephone [facility] MED & PEDS [address] [place], [place] [phone] Marco Nance MD Appointment Request 03/10/2025 Refill [facility] [address] [place] [address] Marco Nance MD Bacterial vaginosis 03/08/2025 Results Follow-Up [facility] [address] [place] [address] Bailey Robles MD Bacterial Vaginosis, Chlamydia/N. Gonorrhoeae RNA, TMA, Urogenitial, TSH W/Reflex to FT4, Additional followed-up results: 2 03/07/2025 Results Follow-Up [facility] [address] [place] [address] Stormy Ruth ANP POCT urinalysis dipstick manually resulted, POCT , urine manually resulted, Bacterial Vaginosis Panel 03/06/2025 1:40 PM EDT Office Visit [facility] [address] [place] [address] Stormy Ruth ANP Lower abdominal pain (Primary Dx); Irregular menses; Vaginal discharge 03/06/2025 Travel from Last 3 Months Immunizations Immunization Administration [...] 02/22/2025 9:16 AM EDT Plan of Treatment Upcoming Encounters Date Type Department Care Team (Late st Contact Info) Description 06/08/2025 4:00 PM EST Office Visit [facility] MED [facility] PED[facility] [address] [place] [address] Marco Nance MD [address] [place] [address] Health Maintenance Due Date Last Done Comments Disability Screening 1985 Family Planning (PISQ) 01/05/1999 HPV Vaccines (1 - 3-dose series) 01/05/1999 DTaP/Tdap/Td Vaccines (1 - Tdap) 01/05/2003 Hepatitis B Vaccines (1 of 3 - 19+ 3-dose series) 01/05/2003 Dental Oral Exam 11/22/2023 05/22/2023 Dental Prophylaxis 12/05/2023 06/04/2023 SDOH Screening 04/24/2024 04/24/2023 Dental X-Ray: Bitewings 05/23/2024 05/22/2023 COVID-19 Vaccine (1 - 2024-2 6 season) 2025 Influenza Vaccine (#1) 2025 , 09/03/2021 Depression Screening 05/06/2025 05/06/2024, 05/06/2024 Alcohol/Substance Use [...] Procedure Name Priority Date/Time Associated Diagnosis Comments US PELVIS TRANSVAGINAL Routine 2:18 PM EST Pelvic pain HCG, TOTAL, QN Routine 03/06/2025 2:52 PM EDT Pelvic pain CBC WITH AUTO DIFFERENTIAL Routine 03/06/2025 2:52 PM EDT Pelvic pain TSH W/REFLEX TO FT4 Routine 03/06/2025 2 :52 PM EDT Pelvic pain BACTERIAL VAGINOSIS PANEL Routine 03/06/2025 2:23 PM EDT Vaginal discharge POCT , URINE Routine 03/06/2025 2:14 PM EDT Lower abdominal pain POCT URINALYSIS DIPSTICK Routine 03/06/2025 2:14 PM EDT Lower abdominal pain BI MAMMOGRAM SCREENING TOMOSYNTHESIS BILATERAL Routine [...] Recently Relevant to Health Maintenance Results * US Pelvis Transvaginal (05/26/2025 2:18 PM EST) Anatomical Region Laterality Modality Pelvis Ultrasound 05/26/2025 2:18 PM EST Narrative 05/26/2025 3:40 PM EST [facility] [address] [place] [address] [place] [address] Ultrasound Report Signed Patient: Kelle Howrad MR#: [id number] : 1985 Acct:[id number] Age/Sex: 40 / F ADM Date: 05/26/25 Loc: HO.HMGCX Attending Dr: Bailey Robles MD Ordering Physician: Bailey Robles MD Date of Service: 05/26/25 Procedure(s): US pelvic and transvaginal Accession Number(s): [id number] cc: Marco Nance MD; Bailey Robles MD Reason for Exam: 40 yo F with AUB and pelvic pain send to [facility] EXAMINATION: US PELVIS CLINICAL INFORMATION: Abnormal uterine bleeding, pelvic pain COMPARISON: None available. TECHNIQUE: Ultrasound of the pelvis is performed using both transabdominal and transvaginal transducers along with Doppler. Transvaginal imaging is performed due to inadequate visualization transabdominally. FINDINGS: Uterus: The uterus is anteverted and measures 7.7 x 4.5 x 4.5 cm. The double wall endometrial thickness is 10 mm. The uterus is smooth in contour and has normal myometrial echogenicity. No visible fibroid. Adnexa: Both ovaries are visualized. There is normal color flow to the adnexa. There is no ovarian torsion. There is no pelvic ascites or fluid collection. Right ovary measures 2.6 x 1.7 x 1.9 cm. Left ovary measures 3.2 x 1.4 x 1.3 cm. 4 mm echogenic focus with posterior acoustic shadowing is consistent with focal calcification. US/US pelvic and transvaginal IMPRESSION: Unremarkable pelvic ultrasound. Electronically signed by: Nathan Lopez MD 05/26/2025 03:37 PM EST Dictated By: Nathan Lopez MD Signed By: <Electronically signed by Nathan Lopez MD in OV> 05/26/25 1537 DD/ 1418 TD/TT: 05/26/25 1445 Load Checker: Procedure Note Donotuseinterpreter, Image - 05/26/2025 [facility] [place] [address] Ultrasound Report Signed Patient: Kelle Howard MR#: [id number] : 1985Acct:[id number] Age/Sex: 40 / FADM Date: 05/26/25 [facility]: Bailey Robles MD Ordering Physician: Bailey Robles MD Date of Service: 05/26/25 Procedure(s): US pelvic and transvaginal Accession Number(s): [id number] cc: Marco Nance MD; Bailey Robles MD Reason for Exam: 40 yo F with AUB and pelvic pain send to [facility] EXAMINATION: US PELVIS CLINICAL INFORMATION: Abnormal uterine bleeding, pelvic pain COMPARISON: None available. TECHNIQUE: Ultrasound of the pelvis is performed using both transabdominal and transvaginal transducers along with Doppler. Transvaginal imaging is performed due to inadequate visualization transabdominally. FINDINGS: Uterus: The uterus is anteverted and measures 7.7 x 4.5 x 4.5 cm. The double wall endometrial thickness is 10 mm. The uterus is smooth in contour and has normal myometrial echogenicity. No visible fibroid. Adnexa: Both ovaries are visualized. There is normal color flow to the adnexa. There is no ovarian torsion. There is no pelvic ascites or fluid collection. Right ovary measures 2.6 x 1.7 x 1.9 cm. Left ovary measures 3.2 x 1.4 x 1.3 cm. 4 mm echogenic focus with posterior acoustic shadowing is consistent with focal calcification. US/US pelvic and transvaginal IMPRESSION: Unremarkable pelvic ultrasound. Electronically signed by: Nathan Lopez MD 05/26/2025 03:37 PM EST Dictated By: Nathan Lopez MD Signed By: <Electronically signed by Nathan Lopez MD in OV> 05/26/25 1537 DD/ 1418 TD/TT: 05/26/25 1445 Load Checker: us Bailey Robles MD IMG US PROCEDURES Final Resul t * TSH W/Reflex to FT4 (03/06/2025 2:52 PM EDT) TSH reflex Free T4 1.44 0.32 - 4.0 uIU/mL [facility] Blood Venous blood specimen / Unknown 03/06/2025 2:52 PM EDT 03/06/2025 4:08 PM EDT us Bailey Robles MD LAB BLOOD ORDERABLES Final Re sult [facility] [address] [place] [phone] * CBC auto differential (03/06/2025 2:52 PM EDT) White Blood Count 8.5 4.8 - 10.8 X10*3/uL [facility] Red Blood Count 4.38 4.20 - 5.50 X10*6/uL [facility] Hemoglobin 13.3 12.0 - 16.0 g/dl [facility] Hematocrit 39.5 37.0 - 47.0 % [facility] Mean Corpuscular Volume 90.2 80.0 - 98.0 fL [facility] Mean Corpuscular Hemoglobin 30.4 27.0 - 33.0 pg [facility] Mean Corpuscular HGB Conc 33.7 31.0 - 35.0 g/dl [facility] Red Cell Distribution Width 12.5 11.0 - 16.0 % [facility] Platelet Count 291 160 - 400 X10*3/uL [facility] Mean Platelet Volume 10.2 9.4 - 12.3 fL [facility] Neutrophils Percent Auto 65.5 45 - 73 % [facility] Imm Gran Pct Auto 0.4 0.0 - 0.4 % [facility] Lymphocytes Percent Auto 25.4 20 - 40 % [facility] Monocytes Percent Auto 6.9 2 - 11 % [facility] Eosinophils Percent Auto 1.3 0 - 4 % [facility] Basophils Percent Auto 0.5 0 - 2 % [facility] NRBC Pct Auto 0.0 0.0 - 0.2 /100WBC [facility] Neutrophils Absolute Auto 5.6 2.0 - 8.3 x10*3/uL [facility] Imm Gran Abs Auto 0.03 0.00 - 0.03 X10*3/uL [facility] Lymphocytes Absolute Auto 2.2 1.2 - 4.9 X10*3/uL [facility] Monocytes Absolute Auto 0.6 0.1 - 1.2 X10*3/uL [facility] Eosinophils Absolute Auto 0.1 0.0 - 0.4 X10*3/uL [facility] Basophils Absolute Auto 0.0 0.0 - 0.2 X10*3/uL [facility] NRBC Abs Auto 0.000 0.0 - 0.012 X10*3/uL [facility] Blood Venous blood specimen / Unknown 03/06/2025 2:52 PM EDT 03/06/2025 4:08 PM EDT us Bailey Robles MD LAB BLOOD ORDERABLES Final Re sult [facility] [address] [place] [phone] * hCG, Total, Quantitative (03/06/2025 2:52 PM EDT) HCG Quantitative <2 mIU/mL [facility] Comment:Weeks post LMP Appro ximate hCG(Last Menstrual Period) Range (mIU/ml)3 - 4 weeks 9 - 1304 - 5 weeks 75 - 2,6005 - 6 weeks 850 - 20,8006 - 7 weeks 4000 - 100,2007 - 12 weeks 11,500 - 289,99824 - 16 weeks 18,300 - 137,94397 - 29 weeks (2nd trimester) 1,400 - 53,21659 - 41 weeks (3rd trimester) 940 - 60,000The Mckeon B- hCG assay is used for the early detection [...] MD LAB BLOOD ORDERABLES Final Re sult [facility] [address] [place] [phone] * (ABNORMAL) Bacterial Vaginosis Panel (03/06/2025 2:23 PM EDT) Pathologist [facility] TRICHOMONAS VAGINALIS DETECTION BY PCR NOT DETECTED Not Detect [facility] BACTERIAL VAGINOSIS DETECTION BY PCR POSITIVE(A) Negative [facility] Comment:The BV organism targ ets of [...] of 14. JEANETTE GROUP DETECTION BY PCR DETECTED(A) Not Detect [facility] Jeanette glab krusei PCR NOT DETECTED Not Detect [facility] Swab Vaginal structure / Unknown 03/06/2025 2:23 PM EDT 03/06/2025 4:28 PM EDT us Stormy SHETH LAB MICROBIOLOGY - GENERAL ORDER BRISEIDA Final Result [facility] [address] [place] [address] [phone] * POCT , urine manually resulted (03/06/2025 2:14 PM EDT) Preg Test, Ur Negative Negative, Indeterminate, None Detected, Invalid, Specimen unsatisfactory for evaluation, Weakly Positive, 2+ Urine 03/06/2025 2:14 PM EDT us Stormy Ruth ANP POINT OF CARE TEST ENTER/EDIT OR DERABLES [...] TEST ENTER/EDIT OR DERABLES Final Result * BI Mammogram Screening Tomosynthesis Bilateral (10/04/2024 4:13 PM EDT) Anatomical Region Laterality Modality Breast Bilateral Mammography 10/04/2024 4:13 PM EDT Narrative 10/15/2024 11:24 AM EDT [facility] [address] [place] [address] Mammography Report Signed Patient: Kelle Howard MR#: [id number] : 1985 Acct:[id number] Age/Sex: 39 / F ADM Date: 10/04/24 Loc: HO.MAMMO Attending Dr: Marco Nance MD Ordering Physician: Marco Nance MD Results: 1 Negative Date of Service: 10/04/24 Follow Up: 1 Year From Orig ina Mammogram Procedure(s): MM tomosynthesis screening BI Accession Number(s): [id number] cc: Marco Nance MD EXAMINATION: MM SCREENING [...] 10/15/24 1121 DD/ 1613 TD/TT: 10/04/24 1628 Load Checker: Procedure Note Donotuseinterpreter, Image - 10/15/2024 [facility] [address] [place] [address] Dr. [place], [place] [address] Mammography Report Signed Patient: Kelle Howard MR#: [id number] : 1985Acct:[id number] Age/Sex: 39 / FADM Date: 10/04/24 Loc: HO.MAMMO Attending Dr: Marco Nance MD Ordering Physician: Marco Nance MDResults: 1 Negative Date of Service: 10/04/24Follow Up: 1 Year From [facility] Mammogram Procedure(s): MM tomosynthesis screening BI Accession Number(s): [id number] cc: Marco Nanec MD EXAMINATION: MM SCREENING DIGITAL BREAST TOMOSYNTHESIS, [...] 10/15/24 1121 DD/ 1613 TD/TT: 10/04/24 1628 Load Checker: us Marco Nance MD IMG BI PROCEDURES [...] a test for HCV RNA (test code 43041) is suggested. For additional information please refer to http://[employer].Publicfast/faq/MNY15z4 (This link is being provided for informational/ educational purposes only.) 05/09/2022 10:1 0 AM EST us Moon Baig [facility] HISTORICAL/NON ORDERABLE LABS Final Result Performing Organization Address [facility] de Phone Number CONVERTED LEGACY LABS * HIV 1/2 ANTIGEN/ANTIBODY,FOURTH GENERATION W/RFL (05/09/2022 10:10 AM EST) Pathologist [facility] HIV-1/2 ANTIGEN AND ANTIBODIES, 4TH GENERATION W/ [...] purpose. For additional information please refer to http://[employer].Publicfast/faq/GED862 (This link is being provided for informational/ educational purposes only.) The performance of this assay has not been clinically validated in patients less than 2 years old. 05/09/2022 10:1 0 AM EST Moon Makdarian [facility] LAB BLOOD ORDERABLES Final Res ult Performing Organization Address [facility] de Phone Number CONVERTED LEGACY LABS * THINPREP TIS PAP AND HPV mRNA E6/E7 WITH REFLEX TO HPV 16,18/45 (09/03/2021 3:07 PM EDT) Pathologist [facility] Clinical Information: None given [facility] COMMENT SEE COMMENT [facility] ON [...] along with historic and current clinical information. Comment: This Pap test has been evaluated with computer assisted technology. [facility] Appliance Repair Technician: SEE COMMENT [facility] Comment: CMG, CT(ASCP) CT screening location: [place] [address] HPV nRNA E6/E7 Not Detected Not Detected [facility] Comment: Methodology: Automation Tender-Mediated Amplification This assay detects E6/E7 viral messenger RNA (mRNA) from 14 high-risk HPV types (16,18,31,33,35,39,45,51,52,56,58,59,66,68). The analytical performance characteristics of this assay have been determined by [employer]. The modifications have not been cleared or approved by the FDA. This assay has been validated pursuant to the CLIA regulations and is used for clinical purposes. For additional information, please refer to http://education.Publicfast/faq/ABF124f0 (This link if provided for information/ educational purposes only.) Interpretation/Re sult: Negative for intraepithelial lesion or malignancy. [facility] LMP: NONE GIVEN [facility] Prev. BX: NONE GIVEN [facility] Prev. PAP: NONE GIVEN [facility] ON LAB SYSTEM SOURCE: None given [facility] Statement Of Adequacy: SEE COMMENT [facility] Comment: Satisfactory for evaluation. Endocervical/transformation zone component present. Age and/or menstrual status not provided 09/03/2021 3:07 PM EDT us Mercedes Garland CNM LAB PATHOLOGY ORDERABLES Final Result [facility] [address] from Last 3 Months or Most Recently Relevant to Health Maintenance [place] [address] [address] LIMITED HSN FULL DENTAL-[facility] MEDICAID LIMITED ADULT DENTAL - HSN FULL (MEDICAID) DENTAL - HSN PARTIAL (MEDICAID) Care Teams Family Service Worker Relationship Specialty Start Date End Date Marco Nance MD [address] [place] [phone] PCP - General Internal Medicine 07/22/21
--- OUTSIDE RECORDS SUMMARY | 2025-05-26 18:21 | XMS_ITS | Clinical Summary ---
Author Organization [facility] Address [address] [place] [address] Care Team Providers Care Overedge Machine Operator Name Role Phone Marco Nance Primary Care Provider + [phone] Allergies No known active allergies Medications diclofenac [...] of Health Annual Screening 06/22/2024 Influenza Vaccine (#1) 2025 COVID-19 Vaccine (4 - 2024-2 6 season) 2025 07/06/2021, 12/21/2020, 11/30/2020 Pneumococcal Vaccine: Pediatric (0-5 Years) and At-Risk Patients (6-50 Years) Aged Out No longer eligible based on patient's age to complete this topic Insurance [facility] HSNO/FREE CARE Care Teams Overedge Machine Operator Relationship Specialty Start Date End Date Marco Nance [address] [place] [phone] PCP - General Internal Medicine 10/29/22
== END 2025-05-26 14:09 | disposition home or self-care (01) ==
LOC: HO.HMGCX 14:08
PROVIDERS: PCP Internal Medicine; Visit Provider Family Medicine
DX: N93.9 Abnormal uterine and vaginal bleeding, unspecified (principal); R10.20 Pelvic and perineal pain unspecified side
CPT/HCPCS: 76830; 76856

== ENCOUNTER → 2025-05-26 14:13 | Outpatient (BNV) | payer MEDICAID, SELFPAY | PROVIDERS: PCP Internal Medicine; Visit Provider Radiology Diagnostic Radiology | DX: N93.9 Abnormal uterine and vaginal bleeding, unspecified (principal); R10.20 Pelvic and perineal pain unspecified side | CPT/HCPCS: 76830; 76856 ==